=== PATIENT | male | born 1985 | race Caucasian/White ===

== ENCOUNTER 2019-05-22 06:42 | Emergency (ER) | payer OTHER ==
[2019-05-22 07:02] VITALS: TEMP 98.4; BMI 30.6
[2019-05-22] MEDS ORDERED: ACETAMINOPHEN 325 MG TABLET (FP) PO ONE (07:44)
--- NOTE | 2019-05-22 07:45 | PDOC ---
History of Present Illness - General Chief Complaint: Pain, Acute Stated Complaint: TESTICULAR PAIN Time Seen by Provider: 05/22/19 07:12 History Source: Patient Exam Limitations: No Limitations - History of Present Illness Initial Comments: 05/22/19 07:35 Source: Patient HPI: 34yo man with no PMH presenting with testicular pain since midnight (7 hours). Awoke from sleep due to 10/10 non-radiating testicular pain, some relief with tylenol, current pain 6/10 squeezing quality. Sexually active, without hx of STI, intermittent condom use, reports 5x urination this morning but no pain / burning / smell / blood in urine, denies discharge, itch, ulcers, or growths on the penis. Denies trauma, fever, chills. One week ago experienced right flank pain that "went to my testicle" and resolved with tylenol. All: KNDA Meds: denies PMH: denies PSH: R eye surgery Past History - Travel Traveled outside of the country in the last 30 days: No Close contact w/someone who was outside of country & ill: No - Past Medical History Allergies/Adverse Reactions: Allergies Allergy/AdvReac Type Severity Reaction Status Date / Time No Known Allergies Allergy Verified 07/13/16 19:43 Home Medications: Ambulatory Orders Tamsulosin HCl [Flomax] 0.4 mg PO DAILY #5 capsule 05/22/19 COPD: No - Immunization History Immunization Up to Date: Yes - Suicide/Smoking/Psychosocial Hx Smoking History: Never smoked Have you smoked in the past 12 months: No Hx Alcohol Use: No Drug/Substance Use Hx: No Review of Systems - Review of Systems Able to Perform ROS?: Yes Is the patient limited [place] proficient: No Constitutional: No: Chills, Fever, Night Sweats, Weakness HEENTM: No: Nose Congestion, Throat Pain, Throat Swelling Respiratory: No: Cough, Shortness of Breath, Wheezing Cardiac (ROS): No: Chest Pain, Irregular Heart Rate, Palpitations, Syncope, Chest Tightness ABD/GI: No: Abdominal Distended, Constipated, Diarrhea, Nausea, Vomiting : Yes: See HPI, Frequency, Testicular Pain. No: Burning, Dysuria, Discharge Musculoskeletal: Yes: Back Pain (one week ago, r back pain, resolved with tylenol) Integumentary: No: Bruising, Change in Color, Erythema, Lumps, Pruritus, Rash Neurological: No: Headache, Numbness, Tingling, Weakness All Other Systems: Reviewed and Negative *Physical Exam - Vital Signs Last Vital Signs Temp Pulse Resp BP Pulse Ox 98.4 F 69 18 118/79 100 05/22/19 06:53 05/22/19 06:53 05/22/19 06:53 05/22/19 06:53 05/22/19 06:53 - Physical Exam Comments: 05/22/19 07:47 AFVSS Gen: WDWN man, appears stated age, no acute distress, sitting in chair by bed HEENT: NCAT, EOMI, normal morphologies, MMM, trachea midline CV: RRR, nl s1/s2, no murmurs rubs or gallops appreciated Pulm: CTABL, no wheezes / rales / rhonchi, speaking full sentences, normal work of breathing Abd: soft, nontender, nondistended, no hernias appreciated Pulses 2+ radial, PT bilaterally : normal external male genitalia, no erythema, swelling, rash, excoriation, lesions, discharge, +tenderness in the epididymis and R testicle, cremasteric reflex intact Neuro: alert and oriented, MAEE, CN grossly intact ED Treatment Course - LABORATORY CBC & Chemistry Diagram: 05/22/19 10:32 Medical Decision Making - Medical Decision Making 05/22/19 07:57 34yo man with no PMH presenting with acute testicular pain for 7 hours with some resolution with tylenol / time. History notable for absence of classic urinary / STI sx, no abdominal surgeries, acute onset with improvement with tylenol, flank pain radiating to testicle 1 week ago. Exam notable for stable vitals, intact cremasteric reflex, tenderness of the R testicle and epididymis, intact reflexes and otherwise normal exam. DDX includes most likely epididymitis (or epididymo-orchitis) vs resolved testicular torsion, kidney stone, also UTI vs STI, hernia unlikely given exam. -UA, UCx -Scrotal US -Tylenol 975 PO 05/22/19 10:10 -UA with 2+ blood raising suspicion for kidney stone -US read pending 05/22/19 10:20 -Scrotal US normal -CTAP w/out contrast to assess for possible nephrolithiasis / ureterolithiasis 05/22/19 10:28 -Pain now 2/2, responded well to tylenol -Pt agrees with plan for CTAP 05/22/19 11:54 -Pt with 6x4mm stone in right ureter -Call placed to urology for dispo guidance 05/22/19 12:38 -Spoke with Dr. Lopez who will see the patient in clinic later this week -Flomax sent to pharmacy -Discharge instructions and return precautions discussed, patient verbalized understanding Dispo: home *DC/Admit/Observation/Transfer Diagnosis at time of Disposition: Ureterolithiasis - Discharge Dispostion Disposition: HOME Condition at time of disposition: Improved Decision to Admit order: No - Prescriptions Prescriptions: Tamsulosin HCl [Flomax] 0.4 mg PO DAILY #5 capsule - Referrals Referrals: [facility] [place] [Provider Group] Edwin Izquierdo MD [Staff Physician] - - Patient Instructions Printed Discharge Instructions: DI for Kidney Stones Additional Instructions: You were seen and evaluated in the Emergency Department and were found to have a kidney stone. A prescription for flomax was sent to your pharmacy, please fill this today and use as directed. Continue to use tylenol or other over the counter pain medication as needed. Used as per label. You have been given a referral to a urologist in this packet. Please call the office today and schedule an appointment later this week. Tell them that you were seen in the ED and have a 4x6mm kidney stone. Do not hesitate to return to the ED for any new or concerning symptoms. These include but are not limited to fever, nausea, vomiting, or uncontrolled pain. - Post Discharge Activity
[2019-05-22] MEDS ORDERED: ACETAMINOPHEN 325 MG TABLET (FP) ONE (07:46)
[2019-05-22 09:20] LABS: URINE APPEARANCE Clear; URINE BILIRUBIN Negative (NEGATIVE); URINE COLOR Yellow; URINE GLUCOSE (UA) Negative (NEGATIVE); URINE KETONE Negative (NEGATIVE); URINE LEUK ESTERASE Negative (NEGATIVE); URINE NITRITE Negative (NEGATIVE); URINE PROTEIN 2+ (NEGATIVE); URINE UROBILINOGEN 0.2 mg/dL (0.2-1.0)
--- NOTE | 2019-05-22 09:54 | PDOC ---
Attending Attestation - Resident Resident Name: AlAnmolJerome - ED Attending Attestation I have performed the following: I have examined & evaluated the patient, The case was reviewed & discussed with the resident, I agree w/resident's findings & plan, Exceptions are as noted - HPI HPI: 05/22/19 14:51 Reviewed Residents HPI - Physicial Exam PE: 05/22/19 14:51 Reviewed Residents PE - Medical Decision Making 05/22/19 14:53 Patient presents with one-day history of right testicular discomfort. One week ago he had some low back discomfort radiating to his groin has been asymptomatic since then. His urinalysis showed blood testicular exam was unremarkable his testicular scrotal ultrasound was unremarkable a CAT scan was performed which showed a obstructing ureteral stone. Case was discussed with urology given no fever well controlled pain no systemic symptoms no evidence of infection on urine patient can follow-up as an outpatient in the office with prescription for Flomax Findings, the need for follow-up and strict return instructions discussed with patient.
[2019-05-22 10:01] VITALS: BP 130/77; PULSE 62
[2019-05-22 11:15] LABS: EPI CELLS 1.5 /HPF (0-5/HPF); HYALINE CASTS 7.89 /lpf (0-8); URINE BACTERIA 2.2 /hpf (NEGATIVE); URINE WBC 2.7 /hpf (0-5)
[2019-05-22 11:15] LABS: ALBUMIN 3.8 g/dl (3.4-5.0); BILIRUBIN,TOTAL 0.4 mg/dL (0.2-1); BLOOD UREA NITROGEN 16.5 mg/dL (7-18); CALCIUM 8.7 mg/dL (8.5-10.1); CREATININE 1.1 mg/dL (0.55-1.3); POTASSIUM 4.1 mmol/L (3.5-5.1)
== END 2019-05-22 13:09 | disposition home or self-care (01) ==
LOC: JER 06:42
DX: N20.1 Calculus of ureter (principal)
CPT/HCPCS: 36415; 74176-TC; 76870-TC; 80053; 81003; 87086; 99282-25